=== PATIENT | female | born 1965 | race Caucasian/White ===

== ENCOUNTER 2024-11-01 13:55 | Emergency (ER) | payer OTHER ==
[~2024-11-01] VITALS: Ht 165.1 cm; Wt 67.0 kg
[2024-11-01 14:08] VITALS: O2SAT 100
[2024-11-01] MEDS ORDERED: SODIUM CHLORIDE 0.9% 1,000 ML IV ONE (14:15)
[2024-11-01 14:38] LABS: BASOPHILS % 0.7 % (0.0-2.0); EOSINOPHILS % 0.9 % (0.0-5.0); HEMATOCRIT. 38.5 % (36.0-48.0); HEMOGLOBIN. 12.8 g/dL (12.0-16.0); LYMPHOCYTES % 27.9 % (20.0-50.0); MEAN PLATELET VOLUME 7.9 fl (7.4-10.4); MONOCYTES % 10.6 % (2.0-8.0); NEUTROPHILS % 59.9 % (40.0-76.0); PLATELET 251 x1000/uL (130-400); RED BLOOD CELL COUNT 4.33 mill/uL (4.2-5.4); RED CELL DISTRIBUTION WIDTH 14.0 % (11.6-14.6)
[2024-11-01 14:51] LABS: CREATININE 0.8 mg/dL (0.6-1.0)
[2024-11-01 14:52] LABS: TROPONIN I HIGH SENSITIVITY 7 ng/L (3.0-34); UREA NITROGEN BLOOD 12 mg/dL (9-23)
[2024-11-01 14:53] LABS: ASPARTATE AMINOTRANSFERASE 29 IU/L (<34)
[2024-11-01 14:54] LABS: BILIRUBIN DIRECT 0.1 mg/dL (<=3.0); BILIRUBIN TOTAL 0.7 mg/dL (0.1-1.0); PROTEIN TOTAL 7.3 g/dL (6.0-8.3)
[2024-11-01] MEDS ORDERED: MECL-299 MT (16:07)
[2024-11-01 16:15] VITALS: BP 132/81; PULSE 67; RESP 13; TEMP 36.9; O2SAT 95
[2024-11-01 16:42] LABS: TROPONIN I HIGH SENSITIVITY 7 ng/L (3.0-34)
== END 2024-11-01 16:35 | disposition home or self-care (01) ==
LOC: ER 13:55 → CMPBEDREQ 17:08
DX: R42 Dizziness and giddiness (principal); W19.XXXA Unspecified fall, initial encounter; Y93.89 Activity, other specified; Y92.89 Other specified places as the place of occurrence of the external cause; Y99.0 Civilian activity done for income or pay
CPT/HCPCS: 36415; 71045; 73560; 80048; 80076; 84484; 85025; 93005; 99285; J7030